=== PATIENT | male | born 1965 | race Caucasian/White ===

== ENCOUNTER 2022-11-09 07:06 | Outpatient (CLI) | payer OTHER, SELFPAY | END 2022-11-09 07:07 | disposition home or self-care (01) | LOC: INJ CL 07:07 | PROVIDERS: PCP Family Medicine; Visit Provider Family Medicine | DX: M54.16 Radiculopathy, lumbar region (principal); M51.36 Other intervertebral disc degeneration, lumbar region | CPT/HCPCS: 62323; J0702; Q9966 ==

== ENCOUNTER 2022-12-14 07:28 | Outpatient (CLI) | payer OTHER, SELFPAY | END 2022-12-14 07:29 | disposition home or self-care (01) | LOC: INJ CL 07:29 | PROVIDERS: PCP Family Medicine; Visit Provider Family Medicine | DX: M54.16 Radiculopathy, lumbar region (principal); M51.36 Other intervertebral disc degeneration, lumbar region | CPT/HCPCS: 64483; J1100; Q9966 ==

== ENCOUNTER 2024-09-03 12:48 | Emergency (ER) | payer OTHER, SELFPAY ==
--- OUTSIDE RECORDS SUMMARY | 2024-09-03 12:50 | XMS_ITS | Clinical Summary ---
Author Organization [employer] [facility] Address [address] [place] [id number] Care Team Providers Care Front End Developer Designer Name Role Phone Peggy Sharp DO Primary Care Provider [phone] Allergies No known active allergies Medications Acetaminophen-Caffei ne (EXCEDRIN TENSION HEADACHE) 500-65 mg tab Take 1 tablet by mouth every 6 hours if needed (headache). Active aspirin chewable 81 mg chewable tabletIndications:NS NIKOS (non-ST elevated myocardial infarction) (HC) Take 1 tablet by mouth or nasogastric tube once daily. 0 02/18/20 16 Active nitroglycerin (NITROSTAT) 0.4 mg sublingual tabletIndications:Co ronary artery disease, unspecified vessel or lesion type, unspecified whether angina present, unspecified whether comanche or transplanted heart Place 1 Tablet (0.4 mg) under the tongue every 5 minutes if needed for Chest Pain. 30 Tablet 11 10/06/19 23 Active blood-glucose meterIndications:Lacey betes mellitus, new onset (HC) Glucose meter, test strips and lancets. Test 2x's daily. Dispense meter covered by pts insurance. 1 Each 09/11/19 24 Active diclofenac topical (VOLTAREN) 1 % gelIndications:Acute pain of both knees Apply 4 g topically to affected area(s) four times daily. 450 g 02/01/20 24 Active tiZANidine (ZANAFLEX) 4 mg tabletIndications:Tavia mbar facet arthropathy Take 0.5-1 Tablets (2-4 mg) by mouth every 8 hours if needed for Muscle Spasm. 20 Tablet 1 02/15/20 24 Active ezetimibe (ZETIA) 10 mg tabletIndications:Co ronary artery disease, unspecified vessel or lesion type, unspecified whether angina present, unspecified whether comanche or transplanted heart Take 1 tablet by mouth once daily 90 Tablet 3 03/19/20 24 Active fluticasone (50 mcg per actuation) nasal solution (FLONASE)Indications :Tinnitus aurium, bilateral Inhale 2 Sprays in both nostrils once daily. 16 g 11 05/24/19 25 Active pantoprazole (PROTONIX) 40 mg delayed-release tabletIndications:Hi story of gastroesophageal reflux (GERD) TAKE 1 TABLET BY MOUTH ONCE DAILY BEFORE A MEAL 90 Tablet 06/30/19 25 Active metoprolol succinate (TOPROL XL) 25 mg Sustained-Release tabletIndications:NS NIKOS (non-ST elevated myocardial infarction) (HC) Take 1 tablet by mouth once daily 90 Tablet 06/30/19 25 Active rosuvastatin 40 mg tabletIndications:NS NIOKS (non-ST elevated myocardial infarction) (HC) Take 1 tablet by mouth once daily 60 Tablet 07/28/19 25 Active Active Problems Problem Noted Date Diagnosed Date CAD (coronary artery disease) 01/24/2018 NSTEMI (non-ST elevated myocardial infarction) 1 Overview (02/23/2016): Stents placed 01/2016, stay on brilinta for 12-30 months. 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 pylori) 10/27/2006 Other and unspecified hyperlipidemia 04/15/2006 Grave's disease Resolved Problems Problem Noted Date Diagnosed Date Resolved Date DDD (degenerative disc disease), lumbar 04/05/2008 09/10/2013 Overview (04/05/2008): S/P anterior/posterior lumbar spine decompression & fusion 04/04/08 Lumbosacral spondylosis without myelopathy 12/04/2007 09/10/2013 Displacement of lumbar inter vertebral disc without myelopathy 12/04/2007 09/10/2013 Encounters Date Type Department Care Team Description 09/03/2024 Nurse Triage [facility] [address] [place] [address] Artur Chua MD Leg Pain/problem 07/26/2024 Refill [facility] [address] [place] [address] Peggy Sharp DO Refill Request (Rosuvastatin) 06/29/2024 Refill [facility] [address] [place] [address] Peggy Sharp DO Refill Request (Pantoprazole, Metoprolol Succinate) from Last 3 Months Immunizations Immunization Administration Dates Next Due INFLUENZA, IIV3 PF (AGE >= 6 MO) 02/01/2024 Influenza, IIV3 (Age >=3 years) 02/01/2012 Influenza, IIV4 04/14/2022,,02/11/2020,02/23,02/15/2018,01/28/2017,05/03/2016 Pneumococcal Conj 20-valent (Prevnar 20) 07/26/2022 RSV, Recombinant ADJ Reconst ituted (Arexvy 120MCG/0.5mL) 09/06/2023 Td (Age >=7 Years) 07/31/1999 Tdap 07/15/2014 Zoster (Shingrix-RZV, recombinant) 02/15/2018, Family History Medical History Relation Name Comments Other Brother 8 back surgery Other Brother 9 back surgery Heart Disease Father from hear t attack, age 71, bypass x3, onset age 40's Hyperlipidemia Father Hypertension Father Diabetes Mother Other Sister 5 dying from Lupu s, lung disease Relation Name Status Comments Brother 1 Alive Brother 2 Alive Brother 3 Alive Brother 4 Alive Brother 5 Alive Brother 6 Alive Brother 7 Alive Brother 8 Brother 9 Daughter 1 Alive Daughter 2 Alive Father (Age 71) Heart dise ase Mother Alive Sister 1 Alive Sister 2 Alive Sister 3 Alive Sister 4 Alive Sister 5 Son Alive Social History Tobacco Use Types Packs/Day Years Used Date Smoking Tobacco: Every Day Cigarettes 0.5 11.4 Started: 03/26/2013 Smokeless Tobacco: Never Tobacco Cessation:Ready to Q uit: No; Counseling Given: Not Answered Alcohol Use Standard Drinks/Week Comments No 0 (1 standard drink = 0.6 oz pur e alcohol) Quit after DUI in 1986 PHQ-2 Answer Date Recorded PHQ-2 TOTAL SCORE 0 09/06/2023 Social Connections Answer Date Recorded Do you often feel lonely or isolated from those around you? 0 08/30/2023 Financial Resource Strain Answer Date R ecorded Difficulty of Paying Living Expenses 3 08/30/2023 Difficulty of Paying Living Expenses Not on file 08/30/2023 Food Insecurity Answer Date Recorded Do you worry your food will run out before you are able to buy more? 1 08/30/2023 Transportation Needs Answer Date Record ed Does lack of transportation keep you from medica l appointments? 1 08/30/2023 Does lack of transportation keep you from work, meetings or getting things that you need? 1 08/30/2023 Housing Stability Answer Date Recorded What is your housing situation today? 1 08/30/2023 Interpersonal Safety Answer Date Record ed Are you being hit, kicked, p ushed or yelled at (see row info)? No 06/17/2023 Interpersonal Safety Abuse 12 - 18 Not on file 06/17/2023 Interpersonal Safety Ambulatory Vulnerability No t on file 06/17/2023 Utilities Answer Date Recorded Do you have trouble paying f or utilities (for example, heat, electricity, water, phone)? 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 Not on file Not on file Not on file Not on file Not on file Not on file Not on file Obstetrics History Last Filed Vital Signs Vital Sign Reading Time Taken Comments Blood Pressure 139/90 05/14/2024 7:35 AM MORTGAGE PROCESSING CLERK Pulse 80 05/14/2024 7:35 AM MORTGAGE PROCESSING CLERK Temperature 36.6 C (97.9 F) 02/15/2024 10:21 AM CDT Respiratory Rate 16 03/27/2024 1:28 PM MORTGAGE PROCESSING CLERK Oxygen Saturation 98% 05/14/2024 7:35 AM MORTGAGE PROCESSING CLERK Inhaled Oxygen Concentration - - Weight 96.6 kg (213 lb) 05/14/2024 7:35 AM MORTGAGE PROCESSING CLERK Height 188 cm (6' 2) 03/27/2024 1:28 PM MORTGAGE PROCESSING CLERK Body Mass Index 27.35 03/27/2024 1:28 PM MORTGAGE PROCESSING CLERK Plan of Treatment Upcoming Encounters Date Type Department Care Team (Late st Contact Info) Description 09/10/2024 7:30 AM CDT Office Visit [facility] [address] [place] [address] Peggy Sharp DO [address] [place] [address] Health Maintenance Due Date Last Done Comments COVID-19 vaccine series ( season) 2023 Tetanus booster 07/15/2024 07/15/2014, 07/31/1999 Depression screening for age 12+ 09/07/2024 09/08/2023, 09/07/2023, 09/06/2023, Additional history exists BMI (ht and wt on same day) for age 18+ 03/27/2025 03/27/2024, 09/06/2023, 07/26/2022, Additional history exists Colonoscopy through age 75 02/05/202802/04, 02/04/2023, 02/04/2023, Additional history exists Lipids for age 45-75 09/05/2028 09/06/2023, 07/26/2022, 07/20/2021, Additional history exists Tdap Completed 07/15/2014 Zoster (shingles) series for age 50+ Completed 02/15/2018, 12/05/2017 Hepatitis C screening for ag e 18-79 Completed 03/26/2019 HIV for age 15-65 Completed 07/26/2022 Pneumococcal series for age 50+ Completed RSV vaccine for adults or Completed 09/06/2023 Influenza Vaccine Completed 02/01/2024, , 03/16/2021, Additional history exists Medical Devices Implanted Type Area Lunch Truck Driver Device Identifier Shelf Expiration Date Model / Serial / Lot [id number] 08bone Prec 14x26 [[id number]] Implanted:Qty: 1 on 04/04/2008 at [facility] Explanted:at [facility] (Quantity not on file) Spine [employer] 07/13/2011 [id number]# / [id number] / [id number] 07bone Precision 16x26 Fz [[id number]] Implanted:Qty: 1 on 04/04/2008 at [facility] Explanted:at [facility] (Quantity not on file) Spine [employer] 06/14/2011 [id number]# / [id number] / [id number] abone Canclls Crushed 30cc [[id number]] Implanted:Qty: 1 on 04/04/2008 at [facility] Explanted:at [facility] (Quantity not on file) Spine Musculoskeletal Transplant 02/15/2009 [id number]# / [id number] / [id number] abone Canclls Crushed 30cc [[id number]] Implanted:Qty: 1 on 04/04/2008 at [facility] Explanted:at [facility] (Quantity not on file) Spine Musculoskeletal Transplant 02/15/2009 [id number]# / [id number] / Kit Infuse Lg [id number] - [id number] Implanted:Qty: 1 on 04/04/2008 at [facility] Spine [employer] 05/26/2010 [id number]# / / [id number] Screw Polyaxial 6.5x40mm - [id number] Implanted:Qty: 3 on 04/04/2008 at [facility] Spine [employer] [id number] / / Screw Polyaxial 6.5x45mm - [id number] Implanted:Qty: 3 on 04/04/2008 at [facility] Spine [employer] [id number] / / Rafael Christen Rad 70mm Radius Dbl Bend - [id number] Implanted:Qty: 2 on 04/04/2008 at [facility] Spine [facility] [id number]# / / Elena Christen [id number] - [id number] Implanted:Qty: 6 on 04/04/2008 at [facility] [id number] / / Procedures Procedure Name Priority Date/Time Associated Diagnosis Comments LIPID PANEL W REFLEX MEASURED LDL Routine 09/06/2023 4:30 PM CDT Coronary artery disease, unspecified vessel or lesion type, unspecified whether angina present, unspecified whether comanche or transplanted heart COLONOSCOPY SCREENING Routine 02/04/2023 7:24 AM CDT History of colon polyps LC HIV-1/O/2, 4TH GENERATION Routine 07/26/2022 8:44 AM CDT Screening for HIV (human immunodeficiency virus) ANTI HCV Routine 03/26/2019 2:29 PM MORTGAGE PROCESSING CLERK Need for hepatitis C screening test from Last 3 Months or Most Recently Relevant to Health Maintenance Results * LIPID PANEL W REFLEX MEASURED LDL (09/06/2023 4:30 PM CDT) CHOLESTEROL,TOTAL 132 100 - 199 mg/dL 09/07/2023 2:45 PM CDT [facility] Comment: Cholesterol, Total Reference Ranges Desirable <200 mg/dL Borderline 200-239 mg/dL High >=240 mg/dL TRIGLYCERIDES 116 <150 mg/dL 09/07/2023 2:45 PM CDT [facility] HDL CHOLESTEROL 42 >40 mg/dL 2:45 PM CDT [facility] NON-HDL CHOLESTEROL 90 <145 mg/dl 09/07/2023 2:45 PM CDT [facility] CHOL/HDL RATIO 3.14 <4.50 09/07/2023 2:45 PM CDT [facility] LDL CHOLESTEROL 67 <=130 mg/dL 09/07/2023 2:45 PM CDT [facility] VLDL CHOLESTEROL 23 <=30 mg/dL 09/07/2023 2:45 PM CDT [facility] PROVIDER ORDERED STATUS RANDOM 09/07/2023 2:45 PM CDT [facility] Blood BLOOD SPECIMEN / Unknown Venipuncture / Unknown 09/06/2023 4:30 PM CDT 09/06/2023 4:32 PM CDT us Peggy Sharp DO CHEMISTRY Final Resu lt [facility] [address] [place] [address], [place] * COLONOSCOPY (02/04/2023 7:43 AM CDT) 02/04/2023 7:43 AM CDT Narrative Transcriptions Dru Cerna MD - 02/04/2023 8:58 AM CDT Patient Name: Singh Wooten Procedure Date: 02/04/2023 Gender: Male Date of : 1965 Admit Type: Outpatient Procedure: Colonoscopy Proceduralist: Dru Cerna MD , Yael Malagon RN (Nurse), Alexia Viera (Nurse) Referring MD: Peggy Sharp Indications/Pre-Op Diagnosis: High risk colon cancer surveillance:Personal history of sessile serrated colon polyp (10mm or greater in size), Last colonoscopy:January 2018 Medications: Fentanyl 100 micrograms IV, Midazolam 3 mgIV, The level of sedation administered wasmoderate Procedure Description: The patient had risks, benefits and alternatives explained to andgave informed consent. The patient had a stable cardiopulmonary status and judged an adequate candidate for conscious sedation. The endoscope -[id number] was passed through the anus andadvanced to the cecum, identified by appendiceal orifice and ileocecal valve.The colonoscopy was performed without difficulty. The patient toleratedthe procedure well. The quality of the bowel preparation was good. The ileocecal valve, appendiceal orifice, and rectum were photographed. Complications: No immediate complications. Estimated Blood Loss & Specimen: Estimated blood loss: none. Specimen collected - Yes and sent to Laboratory Findings: The perianal and digital rectal examinations were normal. A 5 mm polyp was found in the ascending colon. The polyp was sessile. The polyp was removed with a hot snare. Resection and retrieval were complete. A 4 mm polyp was found in the transverse colon. The polyp wassessile. The polyp was removed with a cold snare. Resection and retrieval were complete. The exam was otherwise without abnormality. Impressions/Post-Op Diagnosis: - One 5 mm polyp in the ascending colon, removed with a hot snare. Resected and retrieved. - One 4 mm polyp in the transverse colon, removed with a cold snare. Resected and retrieved. - The examination was otherwise normal. Recommendation: - Patient has a contact number available for emergencies. The signsand symptoms of potential delayed complications were discussed with the patient. Return to normal activities tomorrow. Written discharge instructions were provided to the patient. - Resume previous diet. - Continue present medications. - Await pathology results. - Repeat colonoscopy is recommended. The colonoscopy date will be determined after pathology results from today's exam become available for review. Moderate Sedation: A time out was performed before the procedure. Moderate (conscious) sedation was administered by the endoscopy nurse and supervised bythe endoscopist. The following parameters were monitored: oxygensaturation, heart rate, blood pressure, EKG, CO2, respiratory rate, adequacy of pulmonary ventilation and reponse to care. Please refer to the patient's medical record flowsheets and nursing notes for moderate sedation details. Total physician intraservice time was 18 minutes. Dru Cerna MD 02/04/2023 8:58:06 AM This report has been signed electronically. Note Initiated On: 02/04/2023 7:43 AM Procedure Code(s): --- Professional --- 42870, Colonoscopy, flexible; with removalof tumor(s), polyp(s), or other lesion(s) bysnare technique Diagnosis Code(s): --- Professional --- Z86.010, Personal history of colonicpolyps D12.2, Benign neoplasm of ascending colon D12.3, Benign neoplasm of transverse colon (hepatic flexure or splenic flexure) CPT copyright 2021 [employer]. All rights reserved. The codes documented in this report are preliminary and upon calciminer reviewmay be revised to meet current compliance requirements. Scope In: 8:11:43 AM Scope Withdrawal Time 0 hours 10 minutes 51 seconds Scope Out: 8:27:38 AM Dru Cerna MD PROCEDURE ORD Final Res ult * LC HIV-1/O/2, 4TH GENERATION (07/26/2022 8:44 AM CDT) HIV Scr 4th Gen Non Reactive Non Reactive 07/28/2022 12:08 PM CDT [facility] ([facility]) Comment: HIV Negative HIV-1/HIV-2 antibodies and HIV-1 p24 antigen were NOT detected. There is no laboratory evidence of HIV infection. Blood BLOOD SPECIMEN / Unknown Venipuncture / Unknown 07/26/2022 8:44 AM CDT 07/26/2022 8:49 AM CDT Narrative [facility] ([facility]) - 07/28/2022 12:08 PM CDT Performed at: [address] [place] [address] [place] [id number] Gear Straightener: Souleymane Hawkins MD, Phone: [phone] Peggy Sharp DO LABORATORY Final Resu lt [facility] ([facility]) [address] [place] [address], * ANTI HCV (03/26/2019 2:29 PM MORTGAGE PROCESSING CLERK) HEPATITIS C ANTIBODY Non-React felipe Non-React felipe 03/26/2019 8:45 PM MORTGAGE PROCESSING CLERK [facility] Comment:Antibodies to HCV no t detected; does not exclude the possibility of exposure to HCV. Blood BLOOD SPECIMEN / Unknown Venipuncture / Unknown 03/26/2019 2:29 PM MORTGAGE PROCESSING CLERK 03/26/2019 2:29 PM MORTGAGE PROCESSING CLERK us Peggy Sharp DO SEND OUTS Final Resu lt [facility] [address] [place] [address], from Last 3 Months or Most Recently Relevant to Health Maintenance Insurance [employer] * Guarantor: IHSAN MCCLENDON Account Type Relation to Patient Date of Phone Billing Address [facility] [address] [place] [address] Advance Directives * Full Code (Latest Code Status on File) Date Activated Date Inactivated Comments 02/17/2016 1:17 PM 02/18/2016 1:12 PM * Full Code Date Activated Date Inactivated Comments 02/17/2016 1:07 PM 02/17/2016 1:17 PM Question Answer Comments Code Status Discussion: Not Discussed * Full Code Date Activated Date Inactivated Comments 04/04/2008 8:05 PM 04/08/2008 12:20 PM * Full Code Date Activated Date Inactivated Comments 04/04/2008 11:00 AM 04/04/2008 8:05 PM Care Teams Front End Developer Designer Relationship Specialty Start Date End Date Peggy Sharp DO [address] [place] [address] PCP - General Family Practice 03/08/17
[2024-09-03 13:00] VITALS: BP 122/75; PULSE 73; RESP 18; TEMP 36.6; O2SAT 96; BMI 27.0
--- NOTE | 2024-09-03 14:22 | CRLHL7_ITS ---
For Patients: As a result of the Century Cures Act, medical imaging exams and procedure reports are released immediately into your electronic medical record. You may view this report before your referring provider. If you have questions, please contact your health care provider. Indication: Right lower extremity pain Technique: Grayscale, grayscale compression, color Doppler, spectral Doppler and augmentation technique was utilized for evaluating the right lower extremity venous system. The left common femoral vein was also studied. Comparison: None Findings: The left common femoral vein appears normal. The following structures were studied on the right and showed no evidence of deep venous thrombosis: Greater saphenous vein, common femoral vein, deep femoral vein, femoral vein, popliteal vein, peroneal vein and posterior tibial vein Impression: No evidence of right lower extremity deep venous thrombosis Dictated by Adryan Guo MD @ 09/03/2024 3:25:03 PM (Electronically Signed)
--- NOTE | 2024-09-03 14:28 | ED_ITS ---
HPI - Extremity Injury (Lower) General Date Seen: 09/03/24 Chief Complaint: Extremity Pain/Injury, Lower Stated Complaint: triage nurse sent over, left leg pain Time Seen by Provider: 09/03/24 14:06 Source: patient Mode of arrival: ambulatory Limitations: no limitations History of Present Illness HPI Narrative: Patient is a 59-year-old male presenting for right lower extremity pain. He st ates he has a history of back, hip, knee, ankle issues. Has been seen Dr. Ying for all these issues for multiple years now and has had multiple injections. States for the past 2 week the pain has been getting worse and is making difficult for him to sleep. He tried to call his doctor's office to step in appointment but the nurse triage line told him there is concern for a blood clot in told him to come to the emergency department for evaluation. He has not noticed any lower extremity swelling. Has no history of blood clots. Only symptom that has any consistency with a blood clot is calf pain. This calf pain is not too abnormal for him he states. Pain in his leg is hard for him to describe he states states it seems like every spot that he has been having issues with this hurting and the pain goes through the entire leg. Denies any new injuries to the leg but has previously fallen twice in the past 7 months he states most recently was 2 months ago when they were trying a polar branch off a tree and caused him and his brother's to both fall down pretty hard. Related Data Home Medications ?Medication ?Instructions ?Recorded ?Confirmed aspirin 09/03/24 atorvastatin 09/03/24 ezetimibe 10 mg tablet 10 mg PO DAILY 09/03/24 09/03/24 metoprolol succinate 25 mg 25 mg PO DAILY 09/03/24 09/03/24 tablet,extended release 24 hr rosuvastatin 40 mg tablet 40 mg PO DAILY 09/03/24 09/03/24 Allergies Allergy/AdvReac Type Severity Reaction Status Date / Time No Known Drug Allergies Allergy Verified 09/03/24 13:06 Review of Systems Narrative: Pertinent systems reviewed and were negative unless stated in HPI Exam Narrative: Exam Narrative: Const: Well-nourished, Well-developed, in mild distress Eyes: PERRL, no conjunctival injection, and symmetrical lids HENT: Atraumatic external nose and ears. Moist mucous membranes. Neck: Symmetric, trachea midline, No thyromegaly. CVS: Dorsalis pedis pulse +2 bilateral MSK:Extremities w/o deformity, Normal Active ROM, mild tenderness noted to right ankle and palpation. Skin: Warm, Dry. No rashes or lesions. Neuro: Normal Muscle tone, No focal neurological deficits. Psych: Awake, Alert, & Oriented x3. Appropriate mood and affect. Const: Vital Signs, click to edit/add: Vital Signs - 24 hr 09/03/24 13:00 Temperature 97.9 F Pulse Rate [Pulse Oximeter] 73 Respiratory Rate 18 Blood Pressure [Ri t Upper Arm] 122/75 Pulse Oximetry 96 Oxygen Delivery Me thod Room Air Course Vital Signs Vital signs: Initial Vital Signs Temperature 97.9 F 09/03/24 13:00 Temperature Source Temporal Artery Scan 09/03/24 13:00 Pulse Rate 73 09/03/24 13:00 Respiratory Rate 18 09/03/24 13:00 Blood Pressure 122/75 09/03/24 13:00 Blood Pressure Mean 90 09/03/24 13:00 Pulse Oximetry 96 09/03/24 13:00 Oxygen Delivery Method Room Air 09/03/24 13:00 Vital Signs Temperature 97.9 F 09/03/24 13:00 Pulse Rate 73 09/03/24 13:00 Respiratory Rate 18 09/03/24 13:00 Blood Pressure 122/75 09/03/24 13:00 Pulse Oximetry 96 09/03/24 13:00 Oxygen Delivery Method Room Air 09/03/24 13:00 Temperature 97.9 F 09/03/24 13:00 Pulse Rate 73 09/03/24 13:00 Respiratory Rate 18 09/03/24 13:00 Blood Pressure 122/75 09/03/24 13:00 Pulse Oximetry 96 09/03/24 13:00 Oxygen Delivery Method Room Air 09/03/24 13:00 MDM - Extremity Injury (Lower) MDM Narrative Medical decision making narrative: Patient is a 59-year-old male presenting to the emergency department for leg pain. Exam does not definitively some like a blood clot but we will do an ultrasound to rule out. His pain seems to be coming from multiple different sources and I do not believe further imaging or workup will be beneficial here in the emergency department. Ultrasound shows no signs of a DVT. Patient will be discharged. He is agreeable to this plan. Imaging Data Venous US: Attestation: I have reviewed the pertinent imaging results. Radiologist's impression: No evidence of right lower extremity deep venous thrombosis Dictated by Adryan Guo MD @ 09/03/2024 3:25:03 PM Discharge Plan Discharge Clinical Impression: Leg pain, right Patient Disposition: Home, Self-Care Condition: Stable Additional Instructions: Follow-up with the primary care provider about 2 leg pain. Return for new or worsening symptoms. Prescriptions: No Action metoprolol succinate 25 mg tablet extended release 24 hr 25 mg PO DAILY ezetimibe 10 mg tablet 10 mg PO DAILY rosuvastatin 40 mg tablet 40 mg PO DAILY atorvastatin aspirin Follow Up/Referrals: Peggy Sharp DO [Primary Care Provider] - Stand Alone Forms: [email or web address] Info Instructions
--- OUTSIDE RECORDS SUMMARY | 2024-09-03 15:12 | XMS_ITS | Clinical Summary ---
Author Organization [facility] Address [address] [place] [id number] Care Team Providers Care Laser/Electro Optics Technician Name Role Phone Peggy Sharp DO Primary Care Provider [phone] Allergies No known active allergies Medications Acetaminophen-Caffei [...] type, unspecified whether angina present, unspecified whether [place] or transplanted heart Place 1 Tablet (0.4 [...] type, unspecified whether angina present, unspecified whether k[place] or transplanted heart Take 1 tablet by [...] 06/30/19 25 Active rosuvastatin 40 mg tabletIndications:NS NIKOS (non-ST elevated myocardial infarction) (HC) [...] Department Care Team Description 09/03/2024 Nurse Triage [facility] [address] [place] [address] Artur Chua MD Leg Pain/problem 07/26/2024 Refill [facility] [address] [place] [address] Peggy Sharp DO Refill Request (Rosuvastatin) 06/29/2024 Refill [facility] [address] [place] [address] Peggy Sharp DO Refill Request (Pantoprazole, Metoprolol [...] on file Legal Sex Male 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 Gender Identity Not on file Sexual Orientation Not on file 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 Not on file Not on file Not on file Not on file Not on file Not on file Not on file Obstetrics History Last Filed Vital Signs Vital Sign Reading Time Taken Comments Blood Pressure 139/90 05/14/2024 7:35 AM DIGITAL COLOR PRESS OPERATOR Pulse 80 05/14/2024 7:35 AM DIGITAL COLOR PRESS OPERATOR Temperature 36.6 C (97.9 F) 02/15/2024 10:21 AM CDT Respiratory Rate 16 03/27/2024 1:28 PM DIGITAL COLOR PRESS OPERATOR Oxygen Saturation 98% 05/14/2024 7:35 AM DIGITAL COLOR PRESS OPERATOR Inhaled Oxygen Concentration - - Weight 96.6 kg (213 lb) 05/14/2024 7:35 AM DIGITAL COLOR PRESS OPERATOR Height 188 cm (6' 2) 03/27/2024 1:28 PM DIGITAL COLOR PRESS OPERATOR Body Mass Index 27.35 03/27/2024 1:28 PM DIGITAL COLOR PRESS OPERATOR Plan of Treatment Upcoming Encounters Date Type Department Care Team (Late st Contact Info) Description 09/10/2024 7:30 AM CDT Office Visit [facility] [address] [place] [address] Peggy Sharp DO [address] [place] [address] Health Maintenance Due Date Last Done Comments [...] history exists Medical Devices Implanted Type Area Performance Engineer Device Identifier Shelf Expiration Date Model / Serial / Lot [id number] [id number] Prec 14x26 [[id number]] Implanted:Qty: 1 on 04/04/2008 at [facility] Explanted:at [facility] (Quantity not on file) Spine [employer] 07/13/2011 [id number]# / [id number] / [id number] 07bone Precision 16x26 Fz [[id number]] Implanted:Qty: 1 on 04/04/2008 at [facility] Explanted:at [facility] (Quantity not on file) Spine [employer] 06/14/2011 [id number]# / [id number] / [id number] abone Canclls Crushed 30cc [[id number]] Implanted:Qty: 1 on 04/04/2008 at [facility] Explanted:at [facility] (Quantity not on file) Spine Musculoskeletal [employer] 02/15/2009 [id number]# / [id number] / [id number] abone Canclls Crushed 30cc [[id number]] Implanted:Qty: 1 on 04/04/2008 at [facility] Explanted:at [facility] (Quantity not on file) Spine Musculoskeletal Transplant 02/15/2009 [id number]# / [id number] / Kit Infuse Lg [id number] - [id number] Implanted:Qty: 1 on 04/04/2008 at [facility] Spine [employer] 05/26/2010 [id number]# / / [id number] Screw Polyaxial 6.5x40mm - [id number] Implanted:Qty: 3 on 04/04/2008 at [facility] Spine [employer] [id number] / / Screw Polyaxial 6.5x45mm - [id number] Implanted:Qty: 3 on 04/04/2008 at [facility] Spine [employer] [id number] / / Rafael Christen Rad 70mm Radius Dbl Bend - [id number] Implanted:Qty: 2 on 04/04/2008 at [facility] [id number]# / / Elena Christen [id number] - [id number] Implanted:Qty: 6 on 04/04/2008 at [facility] Spine [facility] [id number]# / / Procedures Procedure Name Priority Date/Time Associated Diagnosis Comments LIPID PANEL W REFLEX MEASURED LDL Routine 09/06/2023 4:30 PM CDT Coronary artery disease, unspecified vessel or lesion type, unspecified whether angina present, unspecified whether kotlik or transplanted heart COLONOSCOPY SCREENING Routine 02/04/2023 7:24 AM CDT History of colon polyps LC HIV-1/O/2, 4TH GENERATION Routine 07/26/2022 8:44 AM CDT Screening for HIV (human immunodeficiency virus) ANTI HCV Routine 03/26/2019 2:29 PM DIGITAL COLOR PRESS OPERATOR Need for hepatitis C screening test from Last 3 Months or Most Recently Relevant to Health Maintenance Results * LIPID PANEL W REFLEX MEASURED LDL (09/06/2023 4:30 PM CDT) CHOLESTEROL,TOTAL 132 100 - 199 mg/dL 09/07/2023 2:45 PM CDT [facility] Comment: Cholesterol, Total Reference Ranges Desirable <200 mg/dL Borderline 200-239 mg/dL High >=240 mg/dL TRIGLYCERIDES 116 <150 mg/dL 09/07/2023 2:45 PM CDT [facility] HDL CHOLESTEROL 42 >40 mg/dL 2:45 PM CDT [facility] NON-HDL CHOLESTEROL 90 <145 mg/dl 09/07/2023 2:45 PM CDT [facility] CHOL/HDL RATIO 3.14 <4.50 09/07/2023 2:45 PM CDT [facility] LDL CHOLESTEROL 67 <=130 mg/dL 09/07/2023 2:45 PM CDT [facility] VLDL CHOLESTEROL 23 <=30 mg/dL 09/07/2023 2:45 PM CDT [facility] PROVIDER ORDERED STATUS RANDOM 09/07/2023 2:45 PM CDT [facility] Blood BLOOD SPECIMEN / Unknown Venipuncture / Unknown 09/06/2023 4:30 PM CDT 09/06/2023 4:32 PM CDT us Peggy Sharp DO CHEMISTRY Final Resu lt [facility] [address] [place] [address], [place] * COLONOSCOPY (02/04/2023 7:43 AM CDT) [...] adequate candidate for conscious sedation. The endoscope -[id number] was passed through the anus andadvanced to [...] 7:43 AM Procedure Code(s): --- Professional --- 00876, Colonoscopy, flexible; with removalof tumor(s), polyp(s), or other lesion(s) bysnare technique Diagnosis Code(s): --- Professional --- Z86.010, Personal history of colonicpolyps D12.2, Benign neoplasm of ascending colon D12.3, Benign neoplasm of transverse colon (hepatic flexure or splenic flexure) CPT copyright 2021 [employer]. All rights reserved. The codes documented in this report are preliminary and upon rigger helper reviewmay be revised to meet current compliance requirements. Scope In: 8:11:43 AM Scope Withdrawal Time 0 hours 10 minutes 51 seconds Scope Out: 8:27:38 AM Dru Cerna MD PROCEDURE ORD Final Res ult * LC HIV-1/O/2, 4TH GENERATION (07/26/2022 8:44 AM CDT) HIV Scr 4th Gen Non Reactive Non Reactive 07/28/2022 12:08 PM CDT [facility] Comment: HIV Negative HIV-1/HIV-2 antibodies and HIV-1 p24 antigen were NOT detected. There is no laboratory evidence of HIV infection. Blood BLOOD SPECIMEN / Unknown Venipuncture / Unknown 07/26/2022 8:44 AM CDT 07/26/2022 8:49 AM CDT Narrative [facility] ([facility] - 07/28/2022 12:08 PM CDT Performed at: [address] [place] [address] [place] [phone] Manager Business Process: Souleymane Hawkins MD, Phone: [phone] Peggy Sharp DO LABORATORY Final Resu lt [facility] ([facility]) [address] [place] [address], * ANTI HCV (03/26/2019 2:29 PM DIGITAL COLOR PRESS OPERATOR) HEPATITIS C ANTIBODY Non-React felipe Non-React felipe 03/26/2019 8:45 PM DIGITAL COLOR PRESS OPERATOR [facility] Comment:Antibodies to HCV no t detected; does not exclude the possibility of exposure to HCV. Blood BLOOD SPECIMEN / Unknown Venipuncture / Unknown 03/26/2019 2:29 PM DIGITAL COLOR PRESS OPERATOR 03/26/2019 2:29 PM DIGITAL COLOR PRESS OPERATOR us Peggy Sharp DO SEND OUTS Final Resu lt [facility] [address] [place] [address], from Last 3 Months or Most Recently Relevant to Health Maintenance Insurance [employer] * Guarantor: IHSAN MCCLENDON Account Type Relation to Patient Date of Phone Billing Address [facility] [address] [place] [address] Advance Directives * Full Code (Latest Code [...] 11:00 AM 04/04/2008 8:05 PM Care Teams Laser/Electro Optics Technician Relationship Specialty Start Date End Date Peggy Sharp DO [address] [place] [address] PCP - General Family Practice 03/08/17
== END 2024-09-03 15:52 | disposition home or self-care (01) ==
PROVIDERS: Emergency Provider Student in an Organized Health Care Education/Training Program; PCP Family Medicine
DX: M79.661 Pain in right lower leg (principal)
CPT/HCPCS: 93971; 99283

== ENCOUNTER 2025-01-22 07:18 | Outpatient (CLI) | payer OTHER, SELFPAY | END 2025-01-22 07:19 | disposition home or self-care (01) | LOC: RAD 07:20 → INJ CL 07:22 | PROVIDERS: PCP Family Medicine; Visit Provider Family Medicine | DX: M54.16 Radiculopathy, lumbar region (principal); M51.369 Other intervertebral disc degeneration, lumbar region without mention of lumbar back pain or lower extremity pain | CPT/HCPCS: 64483; J1100; Q9966 ==